=== PATIENT | male | born 1980 | race Caucasian/White ===

== ENCOUNTER 2017-07-20 14:56 | Emergency (ER) | payer OTHER, SELFPAY ==
[2017-07-20] MEDS ORDERED: Ketorolac Tromethamine 30 MG/ML VIAL ONE (16:10)
[2017-07-20] MEDS ORDERED: Lorazepam 2 MG/ML VIAL ONE (16:10)
[2017-07-20] MEDS ORDERED: Dexamethasone 10 MG/ML VIAL ONE (16:10)
[2017-07-20] MEDS ORDERED: Fentanyl 100 MCG/2 ML VIAL ONE (16:10)
--- NOTE | 2017-07-20 17:01 | ULT ---
RIGHT UPPER EXTREMITY VENOUS DUPLEX EXAM: 07/20/17 Veins of the right upper extremity were evaluated with color doppler, spectral analysis and compressi on. INDICATIONS: Right arm pain, edema, numbness, and tingling. FINDINGS: Right internal jugular vein shows normal flow and compression. The right subclavian vein demonstrates normal blood flow with doppler evaluation. The right axillary vein, basilic vein, and cephalic vein all show normal flow and compression. Radial vein and ulnar vein as well as right brachial vein show normal flow and compression. IMPRESSION: No evidence of right upper extremity venous thrombus. POS: [facility]
--- NOTE | 2017-07-20 17:15 | CT ---
CT OF CERVICAL SPINE PERFORMED WITHOUT CONTRAST ENHANCEMENT: 07/20/17 HISTORY: Swelling, pain and numbness in right arm. Left arm is beginning to do the same thing. The vertebral bodies are normal in height. Small osteophytes are seen without significant disc narrow ing. The facets are in normal alignment. At the C3-4 level, there is some minimal uncovertebral changes but no canal or foraminal stenosis. Sl ightly asymmetric right sided uncovertebral hypertrophic changes at C5-6 again without canal or jonathan inal stenosis. There is no central canal stenosis at any level. The thyroid gland is normal in size. The lung apices appear clear. IMPRESSION: Minimal arthritic changes of the spine. No signs of canal or foraminal stenosis. POS: [facility]
--- NOTE | 2017-08-07 15:43 | EKG ---
Test Reason : Blood Pressure : / mmHG Vent. Rate : 073 BPM Atrial Rate : 073 BPM P-R Int : 160 ms QRS Dur : 086 ms QT Int : 378 ms P-R-T Axes : 043 044 023 degrees QTc Int : 416 ms Normal sinus rhythm Normal ECG Confirmed by DARIO OTOOLE, BHARATH ([id number]), dictionary editor JIGNESH SCHULER ([id number]) on 08/07/2017 3:43:07 PM Referred By: Confirmed By:BHARATH BISHOP MD
== END 2017-07-20 17:25 | disposition home or self-care (01) ==
LOC: ERS 14:56
DX: M79.89 Other specified soft tissue disorders (principal); R20.2 Paresthesia of skin; F41.9 Anxiety disorder, unspecified; F17.220 Nicotine dependence, chewing tobacco, uncomplicated
CPT/HCPCS: 72125; 93005; 96374; 96375; J1100; J1885; J2060; J3010

== ENCOUNTER 2018-04-26 23:31 | Emergency (ER) | payer OTHER ==
[2018-04-27] MEDS ORDERED: methylPREDNISolone Sod Succ/PF 125 MG/2 ML VIAL ONE (02:53)
== END 2018-04-27 02:57 | disposition home or self-care (01) ==
LOC: ERS 23:31
DX: R21 Rash and other nonspecific skin eruption (principal); F41.9 Anxiety disorder, unspecified; F17.220 Nicotine dependence, chewing tobacco, uncomplicated; Z79.899 Other long term (current) drug therapy
CPT/HCPCS: 96372; J2930

== ENCOUNTER 2018-07-20 21:06 | Emergency (ER) | payer OTHER ==
[2018-07-20] MEDS ORDERED: methylPREDNISolone Sod Succ/PF 125 MG/2 ML VIAL ONE (21:44)
[2018-07-20 22:06] LABS: #Basophils 0.1 thou/uL (0.0-0.2); #Eosinphils 0.6 thou/uL (0.0-0.7); #Lymphocytes 4.4 thou/uL (1.20-3.40); #Monocytes 0.8 thou/uL (0.11-0.59); %Basophils 0.9 % (0.0-1.0); %Eosinophils 4.9 % (0.0-10.0); %Lymphocytes 37.3 % (21.0-51.0); %Monocytes 6.9 % (0.0-10.0); Hemoglobin 15.3 g/dL (14.0-18.0); Mean Corpuscular HGB CONC 34.3 g/dL (32.0-36.0); Mean Corpuscular Hemoglobin 30.2 pg (27.0-31.0); Mean Corpuscular Volume 87.8 fL (78.0-98.0); Mean Platelet Volume 7.3 fL (7.4-10.4); Platelet Count 274 thou/uL (130-400); RBC Distribution Width 12.3 % (11.5-14.5); Red Blood Cell (RBC) Count 5.06 mill/uL (4.70-6.10); White Blood Cell (WBC) Count 11.9 thou/uL (4.8-10.8)
[2018-07-20 22:27] LABS: ALT (SGPT) 88 U/L (8-55); AST (SGOT) 38 U/L (5-34); Albumin 4.7 g/dL (3.5-5.0); Alkaline Phosphatase 59 U/L (40-150); Anion Gap 16 mmol/L (10-20); BUN (Urea Nitrogen) 16 mg/dL (8.9-20.6); Bilirubin, Total 0.3 mg/dL (0.2-1.2); Calc. Creatinine Clearance 0 mL/min (70-130); Carbon Dioxide 27 mmol/L (22-29); Chloride 104 mmol/L (98-107); Estimated GFR-MDRD 79; Globulin 3.3 g/dL (2.4-3.5); Glucose 92 mg/dL (70-105); Potassium 4.4 mmol/L (3.5-5.1); Sodium 143 mmol/L (136-145)
== END 2018-07-20 22:40 | disposition home or self-care (01) ==
LOC: ERS 21:06
DX: R21 Rash and other nonspecific skin eruption (principal); F41.9 Anxiety disorder, unspecified; F17.220 Nicotine dependence, chewing tobacco, uncomplicated; Z79.899 Other long term (current) drug therapy
CPT/HCPCS: 36415; 80053; 85025; 96372; J2930

== ENCOUNTER 2019-04-09 02:33 | Emergency (ER) | payer OTHER ==
[2019-04-09] MEDS ORDERED: Ketorolac Tromethamine 30 MG/ML VIAL ONE (03:42)
[2019-04-09] MEDS ORDERED: Acetaminophen 500 MG TAB ONE (03:42)
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
== END 2019-04-09 04:23 | disposition home or self-care (01) ==
LOC: ERS 02:33
DX: S06.0X9A Concussion with loss of consciousness of unspecified duration, initial encounter (principal); S16.1XXA Strain of muscle, fascia and tendon at neck level, initial encounter; S00.83XA Contusion of other part of head, initial encounter; S50.02XA Contusion of left elbow, initial encounter; S50.01XA Contusion of right elbow, initial encounter; F17.220 Nicotine dependence, chewing tobacco, uncomplicated; E78.5 Hyperlipidemia, unspecified; F41.9 Anxiety disorder, unspecified; Z79.899 Other long term (current) drug therapy; Y04.0XXA Assault by unarmed brawl or fight, initial encounter
CPT/HCPCS: 70450; 71046; 72125; 96372; J1885; L0120

== ENCOUNTER 2019-04-12 18:05 | Emergency (ER) | payer OTHER | END 2019-04-12 19:09 | disposition home or self-care (01) | LOC: ERS 18:05 | DX: S50.01XA Contusion of right elbow, initial encounter (principal); L03.113 Cellulitis of right upper limb; E78.5 Hyperlipidemia, unspecified; F41.9 Anxiety disorder, unspecified; F17.220 Nicotine dependence, chewing tobacco, uncomplicated; Z79.899 Other long term (current) drug therapy; Y00.XXXA Assault by blunt object, initial encounter | CPT/HCPCS: 99283 ==

== ENCOUNTER 2022-12-10 21:01 | Emergency (ER) | payer OTHER ==
[2022-12-10 21:55] LABS: #Basophils 0.1 thou/uL (0.0-0.2); #Eosinphils 0.2 thou/uL (0.0-0.7); #Monocytes 1.5 thou/uL (0.11-0.59); #Neutrophils 9.7 thou/uL (1.40-6.50); %Basophils 0.3 % (0.0-1.0); %Lymphocytes 24.9 % (21.0-51.0); %Monocytes 9.7 % (0.0-10.0); %Neutrophils 63.4 % (42.0-75.0); Hematocrit 43.1 % (42.0-52.0); Hemoglobin 14.2 g/dL (14.0-18.0); Mean Corpuscular HGB CONC 32.9 g/dL (32.0-36.0); Mean Corpuscular Hemoglobin 28.3 pg (27.0-31.0); Mean Corpuscular Volume 85.9 fl (78.0-98.0); Mean Platelet Volume 9.6 fL (7.4-10.4); Platelet Count 291 10x3/uL (130-400); RBC Distribution Width 12.8 % (11.5-14.5); Red Blood Cell (RBC) Count 5.02 mill/uL (4.70-6.10); White Blood Cell (WBC) Count 15.3 10x3/uL (4.8-10.8)
[2022-12-10 22:17] LABS: ALT (SGPT) 65 U/L (8-55); AST (SGOT) 28 U/L (5-34); Albumin 4.6 g/dL (3.5-5.0); Alkaline Phosphatase 65 U/L (40-110); Anion Gap 15 mmol/L (10-20); BUN (Urea Nitrogen) 14 mg/dL (8.9-20.6); Bilirubin, Total 0.2 mg/dL (0.2-1.2); Calc. Creatinine Clearance 0 mL/min (70-130); Calcium 9.2 mg/dL (7.8-10.44); Carbon Dioxide 22 mmol/L (22-29); Chloride 103 mmol/L (98-107); Estimated GFR 111; Globulin 2.5 g/dL (2.4-3.5); Glucose 101 mg/dL (70-105); Potassium 3.8 mmol/L (3.5-5.1); Protein, Total 7.1 g/dL (6.0-8.3); Sodium 136 mmol/L (136-145)
[2022-12-10 22:22] LABS: Troponin I Less than 0.010 ng/mL (< 0.028)
== END 2022-12-11 00:09 | disposition home or self-care (01) ==
LOC: ERS 21:01
DX: R07.9 Chest pain, unspecified (principal); I10 Essential (primary) hypertension; E11.9 Type 2 diabetes mellitus without complications; E78.5 Hyperlipidemia, unspecified; F17.220 Nicotine dependence, chewing tobacco, uncomplicated; Z79.899 Other long term (current) drug therapy
CPT/HCPCS: 36415; 71046; 80053; 84484; 85025; 93005; 94760